=== PATIENT | female | born 1955 | race Caucasian/White ===

== ENCOUNTER 2019-06-21 13:08 | Outpatient (RCR) | payer MEDICARE, BC, SELFPAY ==
[2019-06-22 12:37] LABS: Immunoglobulin G, Serum 1027 mg/dL (600-1540); Immunoglobulin G1 705 mg/dL (382-929); Immunoglobulin G2 185 mg/dL (241-700); Immunoglobulin G3 29 mg/dL (22-178); Immunoglobulin G4 21.7 mg/dL (4.0-86.0)
== END 2019-09-17 23:59 | disposition home or self-care (01) ==
LOC: ANHLAB 13:08
PROVIDERS: PCP Family Medicine; Visit Provider Internal Medicine Critical Care Medicine
DX: J44.9 Chronic obstructive pulmonary disease, unspecified (principal)
CPT/HCPCS: 36415; 82784; 82785; 82787; 86003; 87015; 87070; 87102; 87107; 87116; 87205; 87206

== ENCOUNTER 2020-01-07 07:44 | Outpatient (CLI) | payer MEDICARE, BC, SELFPAY ==
[2020-01-07 08:44] LABS: Cholesterol 107 mg/dL (0-200); HDL Direct 39 mg/dL; Triglycerides 106 mg/dL (<150)
[2020-01-07 08:55] LABS: LDL Cholesterol Direct 50 mg/dL
== END 2020-01-07 07:45 | disposition home or self-care (01) ==
LOC: ANHLAB 07:47
PROVIDERS: PCP Family Medicine; Visit Provider Internal Medicine Cardiovascular Disease
DX: I25.10 Atherosclerotic heart disease of native coronary artery without angina pectoris (principal); E78.5 Hyperlipidemia, unspecified
CPT/HCPCS: 36415; 80061

== ENCOUNTER 2020-02-17 13:54 | Emergency (ER) | payer MEDICARE, BC, SELFPAY ==
--- NOTE | ~2020-02-17 | XR_ITS ---
XR ankle RT min 3V DATE: 02/17/2020 14:42 INDICATION: Fall. Ankle deformity. TECHNIQUE: 3 views COMPARISON: None FINDINGS: There is a trimalleolar fracture with mild lateral subluxation at the tibiotalar joint. There is approximately 3 mm lateral displacement at the medial malleolar fracture. There is approximately 2 mm lateral displacement at the lateral malleolar fracture. IMPRESSION: Trimalleolar fracture/lateral tibiotalar joint subluxation Reviewed, dictated and finalized at location B.
--- NOTE | ~2020-02-17 | XR_ITS ---
XR ankle RT 2V DATE: 02/17/2020 16:42 INDICATION: Postoperative reduction examination TECHNIQUE: 2 views COMPARISON: 02/17/2020 prereduction examination FINDINGS: 4 mm posterior 1.6 mm lateral displacement at the oblique fracture of the lateral malleolus . Slightly greater than one cortical width posterior and mild superior displacement of the posterior malleolar fracture. Approximately 2.7 mm lateral and up to 8 mm anterior displacement of the medial malleolar fracture. T here is mild residual lateral subluxation at the tibiotalar joint. Soft tissue wrap is present around the lower leg and ankle. IMPRESSION: Trimalleolar fracture with residual displacement and lateral subluxation Reviewed, dictated and finalized at location B. IMPRESSION: Trimalleolar fracture with residual displacement and lateral sublux ation
[2020-02-17 14:03] VITALS: BP 138/61; PULSE 70; RESP 20; TEMP 36.6; O2SAT 100
--- NOTE | 2020-02-17 15:30 | ED.GENADULT ---
HPI - General Adult General Chief complaint: Extremity Injury, Lower <Huseyin Machado PA-C - Last Filed: 02/17/20 17:06> Stated complaint: twisted rt ankle during fall <Huseyin Machado PA-C - Last Filed: 02/17/20 17:06> Time Seen by Provider: 02/17/20 14:44 <Huseyin Machado PA-C - Last Filed: 02/17/20 17:06> Source: patient <Huseyin Machado PA-C - Last Filed: 02/17/20 17:06> Mode of arrival: ambulatory <Huseyin Machado PA-C - Last Filed: 02/17/20 17:06> Limitations: no limitations <Huseyin Machado PA-C - Last Filed: 02/17/20 17:06> History of Present Illness HPI narrative: Patient is a 64-year-old female who presents per EMS for evaluation of ankle injury that occurred just prior to arrival patient was ambulating when she misstepped injuring the right ankle since had moderate aching pain with swelling of the ankle joint with inability to bear weight patient on arrival to emergency department in the room in no distress has not had anything for pain denies other injuries or complaints <Huseyin Machado PA-C - Last Filed: 02/17/20 17:06> Related Data Home medications: Home Medications Medication Instructions Recorded Confirmed melatonin 10 mg PO HS 06/01/19 06/01/19 valacyclovir 500 mg PO DAILY 06/01/19 06/01/19 aspirin 81 mg tablet,delayed 81 mg PO DAILY 08/29/19 release <Huseyin Machado PA-C - Last Filed: 02/17/20 17:06> Allergies/adverse reactions: Allergies Allergy/AdvReac Type Severity Reaction Status Date / Time phenazopyridine AdvReac Severe Vomiting Verified 02/17/20 14:54 <Huseyin Machado PA-C - Last Filed: 02/17/20 17:06> Review of Systems Review of Systems: All systems reviewed & are unremarkable except as noted in HPI and below <Huseyin Machado PA-C - Last Filed: 02/17/20 17:06> PMFSH Past Medical History Medical History: Medical History Bronchitis History of diverticulitis History of migraine headaches History of tobacco use Hyperlipidemia <Huseyin Machado PA-C - Last Filed: 02/17/20 17:06> Surgical History Surgical History: Surgical History H/O: hysterectomy Previous section X2. <Huseyin Machado PA-C - Last Filed: 02/17/20 17:06> Social History Social History: Social History Social History: The patient is and lives in [place], [place]. She designates her , Duncan, as her surrogate decision maker and she wishes to be a full code. She is a former smoker, up to 1.5 packs of cigarettes per day for 10 years. She quit 25+ years ago. No alcohol or drug abuse. She is retired registered nurse, and worked at [employer] in [place]. Smoking packs per day: 1.5 Smoking cigarettes per day: 30.0 Years smoked: 10 Smoking pack-years: 15.00 Smoking status: Former smoker Tobacco type: cigarettes Smoking end date: 07/31/82 Alcohol intake: current Drinks per week: 1 Substance use: never Gender identity (if verbalized by the patient): Female Spiritual care concerns: No Agree to blood products: Yes <Huseyin Machado PA-C - Last Filed: 02/17/20 17:06> Exam Narrative: Exam Narrative: GENERAL: Well-appearing, well-nourished, and in no acute distress. HEAD: Normocephalic, atraumatic. EYES: PERRLA and EOMI. ENT: Nares clear, no rhinorrhea or epistaxis. Mucous membranes moist. CHEST: Clear to auscultation. No respiratory distress. No wheezes rales or rhonchi HEART: Regular rate and rhythm. No murmur heard. Normal peripheral pulses. EXTREMITIES: Swelling and tenderness of the right ankle joint throughout SKIN: Warm, dry, no rash. NEURO: No focal deficits. Alert and oriented x3. Neurovascularly intact. Capillary refill less than 2 seconds PSYCH: Normal mood and affect. <Huseyin Burks
[2020-02-17] MEDS: MORPHINE SULFATE 4 MG/ML INJ IV PUSH (16:07)
[2020-02-17 17:40] VITALS: BP 133/83; PULSE 74; RESP 18; O2SAT 97
== END 2020-02-17 17:41 | disposition home or self-care (01) ==
PROVIDERS: Emergency Provider General Practice; PCP Family Medicine
DX: S82.851A Displaced trimalleolar fracture of right lower leg, initial encounter for closed fracture (principal); W18.40XA Slipping, tripping and stumbling without falling, unspecified, initial encounter; Z87.891 Personal history of nicotine dependence
CPT/HCPCS: 27818; 73600; 73610; 96374; 99285; J2270

== ENCOUNTER 2020-02-19 12:22 | Outpatient (CLI) | payer MEDICARE, BC, SELFPAY ==
[2020-02-19 14:03] LABS: Vitamin D 25 Hydroxy 48.8 ng/mL
== END 2020-02-19 12:23 | disposition home or self-care (01) ==
PROVIDERS: PCP Family Medicine; Visit Provider Orthopaedic Surgery
DX: E55.9 Vitamin D deficiency, unspecified (principal)
CPT/HCPCS: 36415; 82306

== ENCOUNTER 2020-02-20 15:56 | Outpatient (CLI) | payer MEDICARE, BC, SELFPAY ==
--- NOTE | ~2020-02-20 | CT_ITS ---
EXAMINATION: CT ankle RT wo con DATE: 02/20/2020 16:41 INDICATION: Trimalleolar fracture TECHNIQUE: Computed tomography (CT) of the right ankle was performed without intravenous contrast. Th e dose-length product (DLP) was 434.75 mGy-cm. Automated exposure control and iterative reconstructio n technique were employed. COMPARISON: 02/17/2020 FINDINGS: There is a transverse fracture of the medial malleolus at the level of the tibial plafond a nd. There is an oblique fracture of the distal fibula which extends to the level of the tibial plafon d. The largest distal fracture fragment is posteriorly displaced by 7 mm with respect to the proximal fragment. There are 7 mm of lateral subluxation of the talus relative to the distal tibia. Subtle po sterior subluxation of the talus with respect to the distal tibia is also noted. There is a comminute d posterior malleolus fracture of the distal tibia. No additional acute osseous abnormality is identi fied. IMPRESSION: 1. Trimalleolar fracture of the right ankle as detailed above. Reviewed, dictated and finalized at location A.
== END 2020-02-20 15:57 | disposition home or self-care (01) ==
LOC: ANHIMG 15:58
PROVIDERS: PCP Family Medicine; Visit Provider Orthopaedic Surgery
DX: S82.851A Displaced trimalleolar fracture of right lower leg, initial encounter for closed fracture (principal); X58.XXXA Exposure to other specified factors, initial encounter
CPT/HCPCS: 73700

== ENCOUNTER 2020-02-26 01:17 | Outpatient (CLI) | payer MEDICARE, BC, SELFPAY ==
[2020-02-26 19:18] LABS: SARS-CoV-2 RNA PCR Negative
== END 2020-02-26 01:18 | disposition home or self-care (01) ==
LOC: ANHCOVIDDT 01:17
PROVIDERS: PCP Family Medicine; Visit Provider Orthopaedic Surgery
DX: Z01.818 Encounter for other preprocedural examination (principal); Z11.59 Encounter for screening for other viral diseases
CPT/HCPCS: 87635; C9803; U0003

== ENCOUNTER 2020-02-28 02:37 | Day surgery (SDC) | payer MEDICARE, BC, SELFPAY ==
[2020-02-25 13:13] VITALS: BMI 34.2
--- NOTE | 2020-02-26 13:20 | HP_ITS ---
DATE OF SERVICE: 02/28/2020 ADMIT DIAGNOSIS: Displaced right trimalleolar ankle fracture. HISTORY: The patient is a 64-year-old female patient of Dr. Chacko, presents today for ORIF of right trimalleolar ankle fracture, this happened on 02/17/2020. She was coming down some stairs and missed a step, falling and twisting her ankle. She had severe pain. She was seen in the emergency room on 02/16. X-rays demonstrated a trimalleolar ankle fracture with significant displacement of both medial and lateral malleolus. She is placed into a splint. She was seen in the office by Dr. Lance on 02/18. At that time, patient already developed a large blister over the medial aspect of the ankle as well as still having significant swelling in the foot and ankle to the point where it was unsafe to proceed with surgery. She has been in a cast, keeping the leg elevated to get swelling down, so it will be safe to do surgery. PAST MEDICAL HISTORY: She has been diagnosed with COPD in the past. She quit smoking 30 years ago. History of hypertension. CURRENT MEDICATIONS: 1. Baby aspirin daily. 2. Atorvastatin 40 mg daily. 3. Hydrochlorothiazide 12.5 mg daily. 4. Valacyclovir 500 mg daily. ALLERGIES: NO KNOWN DRUG ALLERGIES. PAST SURGICAL HISTORY: She has had hysterectomy in 1997. FAMILY HISTORY: Noncontributory. SOCIAL HISTORY: Again, she quit smoking 30 years ago. PHYSICAL EXAMINATION: GENERAL: A 64-year-old female, very alert, pleasant, no distress. VITAL SIGNS: Vital signs to be found on the intake sheet on the morning surgery. HEENT: Grossly normal. LUNGS: Clear bilaterally. HEART: Regular rate and rhythm. EXTREMITIES: The patient has significant swelling when she was seen on 02/18, around the foot and ankle. She had a 2.5 cm large blister over the medial malleolus. Calf was soft, nontender. She also has moderate swelling to the foot, unable to feel pedal pulses in the right foot today due to swelling. SKIN: Otherwise intact beside for the blistering. She does have normal dorsalis pedis and posterior tibial artery pulse in the left foot. IMAGING DATA: X-rays demonstrated displaced trimalleolar ankle fracture with significant displacement of the medial and lateral malleolus. The posterior malleolus is smaller fragments. IMPRESSION: The patient has displaced right trimalleolar ankle fracture, this is an unstable fracture, needs to be dealt with surgical open reduction and internal fixation of the medial and lateral malleolus. Unfortunately, we initially saw her, she had too much swellings, so she was placed in a cast for getting the swelling down. We will recheck her skin and the swelling on the morning of surgery. If she is still extremely swollen, may need to delay surgery longer. The skin is not doing well over the medial malleolus with a blister, as we may need to delay surgery on the medial malleolus fragment, but the swelling is down around the ankle, proceed with a lateral malleolus open reduction and internal fixation. Surgical procedure as well as risks and complications were discussed. All questions were answered. We will proceed. The patient is going to see Dr. Chacko as well as Dr. Armando, her service consultant for presurgical clearance. Maged I MT: Irais
--- NOTE | 2020-02-27 11:23 | WPDANESEPPF ---
Anes - Initial Pre Proc Eval Procedure: Operation Date: 02/28/20 12:45 Proposed Procedures p Open Reduction Internal Fixation Right Ankle Trimalleolar Fracture - Allen Lance MD Date/Time: 02/27/20 11:23 Surgeon: Allen Lance MD Pre Op Diagnosis: right ankle trimalleolar ankle fx Patient Data Age: 65 Gender: F Height: 1.63 m Weight: 90.4 kg Allergies Allergy/AdvReac Type Severity Reaction Status Date / Time phenazopyridine AdvReac Severe Vomiting Verified 02/28/20 12:16 Home Medications Medication Instructions Recorded Confirmed Type melatonin 10 mg PO HS 06/01/19 02/28/20 History valacyclovir 500 mg PO DAILY 06/01/19 02/28/20 History budesonide-formoterol [Symbicort] 2 puff INHALATION Q12H #1 device 06/03/19 02/28/20 Rx nebulizers [Aeroneb Go Nebulizer] #1 each 06/03/19 Rx albuterol sulfate 0.63 mg INHALATION Q6H PRN #180 ml 06/25/19 02/28/20 Rx aspirin 81 mg tablet,delayed 81 mg PO DAILY 08/29/19 02/28/20 History release hydrocodone-acetaminophen [Sparks] 1 tablet PO Q6H PRN #14 tablet 02/17/20 02/28/20 Rx ascorbic acid (vitamin C) [Vitamin 1,000 mg PO DAILY 02/25/20 02/28/20 History C] atorvastatin 40 mg PO QAM 02/25/20 02/28/20 History hydrochlorothiazide 12.5 mg PO QAM 02/25/20 02/28/20 History magnesium 250 mg PO HS 02/25/20 02/28/20 History multivitamin [Multiple Vitamins] 1 tablet PO DAILY 02/25/20 02/28/20 History Patient hx anesthesia problems: none Family hx anesthesia problems: none PMFSH Past Medical History Medical History (Updated 02/26/20 @ 12:40 by Christian Rowan DO) Bronchitis Diastolic heart failure GERD (gastroesophageal reflux disease) History of diverticulitis History of migraine headaches History of tobacco use Hyperlipidemia Hyperlipidemia Hypertension Liver cyst Surgical History Surgical History H/O: hysterectomy Previous section X2. Social History Social History Social History: The patient is and lives in [place], [place]. She designates her , Duncan, as her surrogate decision maker and she wishes to be a full code. She is a former smoker, up to 1.5 packs of cigarettes per day for 10 years. She quit 25+ years ago. No alcohol or drug abuse. She is retired registered nurse, and worked at [employer] in [place]. Smoking packs per day: 1 Smoking cigarettes per day: 20.0 Years smoked: 10 Smoking pack-years: 10.00 Smoking status: Former smoker Tobacco type: cigarettes Smoking end date: 02/24/90 Alcohol intake: current Drinks per week: 1 Alcohol use details: drinks a beer once in awhile, been months. Substance use: never Living arrangements: with family Gender identity (if verbalized by the patient): Female Spiritual care concerns: No Agree to blood products: Yes Anes - Eval Final PreProcedure Day of Procedure 02/27/20 11:23 Patient weight: obese Heart: regular rate and rhythm Lungs: clear to auscultation and normal air movement Airway: Mallampati scale class II Neurological: alert and oriented Last oral intake: >/= 8 hours ASA classification: III Emergent: no Anesthetic plan: proceed Anesthesia type and monitoring: general LMA and standard monitoring Informed Consent: The patient's anesthetic plan and its attendant risks and benefits were discussed with the patient/family/POA. Questions were solicited and answers provided to the satisfaction of the patient/family/POA.
[2020-02-28] VITALS (9 sets, daily range): BP systolic 98–168; BP diastolic 48–98; PULSE 49–80; RESP 10–20; TEMP 36.3–36.4; O2SAT 97–100
--- NOTE | ~2020-02-28 | XR_ITS ---
XR surgery orthopedic 02/28/2020 15:18 Indication: Intraoperative fixation of right ankle fracture Procedure: 7 fluoroscopic images of the right ankle. 86 seconds of fluoroscopy time. Comparison: 02/17/2020 Findings: Status post intraoperative reduction of trimalleolar right ankle fracture with fibular side plate and screws as well as a lag screw transfixing the medial malleolus. No significant change to mi ldly displaced posterior malleolar fracture. Impression: 1: Near-anatomic alignment of the right ankle post intraoperative reduction with fibular sideplate an d screws. Reviewed, dictated and finalized at location A. Impression: 1: Near-anatomic alignment of the right ankle post intraoperative reduction wit h fibular sideplate and screws.
[2020-02-28] MEDS: ACETAMINOPHEN 500 MG TABLET 1000 MG PO (11:47)
[2020-02-28] MEDS: LACTATED RINGERS 1,000 ML 30 ML IV CONT ×2 (11:54→15:39)
[2020-02-28] MEDS: KETOROLAC 15 MG/ML VIAL (*BKC) IV PUSH (12:20)
--- NOTE | 2020-02-28 12:21 | WPDHPUPDATE1 ---
History and Physical Update Update Date/Time: 02/28/20 12:21 History and Physical has been reviewed, including an updated exam of the patient. There are NO changes in the patient's condition. Risks, benefits, and alternatives have been discussed and questions answered. Patient agrees to proceed with procedure.Less swelling. Medial blister deflated.
[2020-02-28 12:25] LABS: Anion Gap 9.9 mmol/L (7-16); Blood Urea Nitrogen 15 mg/dL (7-17); Calcium 9.1 mg/dL (8.4-10.2); Carbon Dioxide 30 mmol/L (22-30); Chloride 102 mmol/L (98-107); Estimated CRCL calculation 84 ml/min; Estimated Glomerular Filt Rate > 60; Glucose 129 mg/dL (65-105); Potassium 4.9 mmol/L (3.4-5.0); Sodium 137 mmol/L (137-145)
[2020-02-28] MEDS: ceFAZolin 2 GM/D5W 50 ML 2 GM/50 ML BAG IVPB (13:02)
[2020-02-28] MEDS: ceFAZolin SODIUM 1 GM VIAL IRRIGATION (13:40)
--- NOTE | 2020-02-28 15:25 | PM.PROC ---
Procedure Note - Detailed Date of procedure: 02/28/20 Pre-op diagnosis: right ankle trimalleolar ankle fx Displaced trimalleolar right ankle fracture Post-op diagnosis: same Procedure performed: open reduction internal fixation right trimalleolar fracture without fixation of posterior lip Description of procedure: patient was brought to the operating room and general anesthesia was administered. She received 2 g of Ancef weight based vancomycin preoperatively. A bump was placed under the right buttock and roll of towels under the right knee and the right ankle prepped draped usual fashion. Earlier we had carefully scrubbed the ankle with the chlorhexidine cloth. She had a nearly deflated blister about 3 cm diameter over the medial distal tibial metaphysis. This was removed and the skin underneath almost epithelialized. All the skin was covered with Ioban for the procedure. Limb was exsanguinated tourniquet elevated to 300 mmHg. A 4-1/2 inch longitudinal incision was made centered over the lateral malleolus fracture. Dissection was carried down to the fracture site. I looked for but did not visualize branches of superficial branch of peroneal nerve. The fracture was quite displaced. It was long oblique. The distal 5 mm of the proximal fragment distal spike was a comminuted loose piece and this was removed. This still gave us a fracture line about 3 cm in length. We carefully removed hematoma from the fracture. With a bump underneath the distal calf and ankle the foot was allowed to sag into external rotation which allowed us to visualize under the posterior malleolus fragment. There was a piece of subchondral bone that we saw on CT scan that was displaced and interposed between the tibial metaphysis in the comminuted posterior malleolus fragments and this was visualized under head lamp illumination and removed which allowed us to achieve a near anatomic indirect reduction of the small comminuted posterior malleolus fracture that we saw on CT scan was a comminuted jacob 2a type posterior malleolus fracture pattern.. It was its comminution that convinced us to not directly approach the posterior malleolus from a posterior approach. we then performed an anatomic reduction of the lateral malleolus fracture which was a Hernandez B pattern. With the fracture anatomically reduced it was held with 2 bone clamps 1 at each end of the fracture. We placed a 2.7 mm interfragmentary screw through glide hole anteriorly. This held the reduction but allowed the most distal aspect of the fracture to still gap half of a mm and we had a long of oblique fracture in the bone quality was satisfactory that I elected to place a 2nd 2.7 mm interfragmentary screw about 8 or 9 mm distal from the 1st 1 and both obtained excellent purchase and this gave us perfect anatomic reduction of fracture. We then contoured a 7 hole 1/3 tubular locking plate from the Arthrex ankle fracture set. A cortical screw was placed in the 3rd from most proximal drill hole which compressed the plate to the bone nicely and anatomic reduction was maintained. Two locking screws were placed in the lateral malleolus fragment and 2 additional cortical screws placed in the proximal 2 holes. We looked at the ankle from a lateral view. The posterior malleolus fracture remained just mildly displaced. It was a mostly non articular fragment comprising approximately 5-10% of the posterior margin of the joint surface. We then approached the medial side of the ankle through a 4 cm longitudinal incision the did have to extend about a cm into the distal edge of the blister. Dissection was carried down bluntly through subcutaneous fat again taking care to avoid injuring saphenous nerve or vein and once there we removed periosteum from the fracture site and carefully removed the hematoma from the bone surfaces and peeled the periosteum a couple of mm from the fracture site to visualize optimally the fracture surfaces and this was not
[2020-02-28] MEDS: ONDANSETRON INJ 4 MG/2 ML VIAL IV PUSH (16:19)
[2020-02-28] MEDS: diphenhydrAMINE HCl INJ 50 MG/ML VIAL 12.5 MG IV PUSH ×2 (16:50→16:55)
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
== END 2020-02-28 17:33 | disposition home or self-care (01) ==
PROVIDERS: Anesthesiology; PCP Family Medicine; Visit Provider Orthopaedic Surgery
PROC: (CPT 27822; principal; 2020-02-28 12:45)
DX: S82.851A Displaced trimalleolar fracture of right lower leg, initial encounter for closed fracture (principal); W10.9XXA Fall (on) (from) unspecified stairs and steps, initial encounter; I11.0 Hypertensive heart disease with heart failure; I50.9 Heart failure, unspecified; E78.5 Hyperlipidemia, unspecified; K21.9 Gastro-esophageal reflux disease without esophagitis; Z79.82 Long term (current) use of aspirin; Z87.891 Personal history of nicotine dependence; E66.9 Obesity, unspecified; Z68.34 Body mass index [BMI] 34.0-34.9, adult
CPT/HCPCS: 27822; 36415; 80048; A9270; C1713; C1769; J0690; J1100; J1200; J1885; J2405; J2704; J3010; J3370; J7120

== ENCOUNTER → 2020-07-03 13:40 | Outpatient (CLI) | payer MEDICARE, BC, SELFPAY ==
--- NOTE | ~2020-07-03 | MM_ITS ---
EXAMINATION: MM screening natalya BI w hayde HISTORY: Screening mammogram TECHNIQUE: Craniocaudal and mediolateral oblique 3-D tomosynthesis images were obtained and synthetic 2-D images were generated. CAD analysis was submitted and interpreted. COMPARISON: 02/18/2019, 01/09/2018 bilateral digital screening mammogram examinations BREAST PARENCHYMAL COMPOSITION: There are scattered areas of fibroglandular density. FINDINGS: There is stable fibroglandular asymmetry. There are scattered bilateral benign calcificatio ns. There is no evidence of suspicious mass, calcification, or architectural distortion to suggest ma lignancy in either breast. There has been no suspicious interval change. IMPRESSION: 1. No mammographic evidence of malignancy. 2. Recommend routine screening mammography in one year. BI-RADS Category 2: Benign finding(s). Reviewed, dictated and finalized at location A. [employer] WORKER
== END ==
PROVIDERS: PCP Family Medicine; Visit Provider Obstetrics & Gynecology
DX: Z12.31 Encounter for screening mammogram for malignant neoplasm of breast (principal)
CPT/HCPCS: 77063; 77067